=== PATIENT | male | born 1955 | race African-American/Black ===

== ENCOUNTER 2021-09-10 18:19 | Inpatient (IN) | payer OTHER ==
[2021-09-10 18:55] VITALS: BMI 22.5
[2021-09-10] MEDS ORDERED: BISMUTH SUBSALICYLATE 524 MG/30 ML PO PRN (19:20)
[2021-09-10] MEDS ORDERED: MAGNESIUM CITRATE 300 ML BOTTLE PO PRN (19:20)
[2021-09-10] MEDS ORDERED: ONDANSETRON *ODT* 4 MG TABLET SL PRN (19:20)
[2021-09-10] MEDS ORDERED: NICOTINE POLACRILEX 2 MG GUM BUC PRN (19:20)
[2021-09-10] MEDS ORDERED: ACETAMINOPHEN 325 MG TABLET (FP) PO PRN (19:20)
[2021-09-10] MEDS ORDERED: DICYCLOMINE HCL 10 MG CAPSULE PO PRN (19:20)
[2021-09-10] MEDS ORDERED: LOPERAMIDE HCL 2 MG CAPSULE PO PRN (19:20)
[2021-09-10] MEDS ORDERED: MAG HYDROX/AL HYDROX/SIMETH 30 ML UNIT-DOSE CUP PO PRN (19:20)
[2021-09-10] MEDS ORDERED: BENZOCAINE/MENTHOL (CHLORASEPTIC ) LOZENGE MM PRN (19:20)
[2021-09-10] MEDS ORDERED: MAGNESIUM HYDROX 2400MG/30ML ORAL SUSPENSION 30 ML CUP PO PRN (19:20)
[2021-09-10] MEDS ORDERED: chlordiazePOXIDE HCL 25 MG CAPSULE PO PRN (19:22)
[2021-09-10] MEDS ORDERED: chlordiazePOXIDE HCL 25 MG CAPSULE ONE (19:53)
[2021-09-11] MEDS ORDERED: chlordiazePOXIDE HCL 25 MG CAPSULE ONE ×3 (00:35→09:23)
[2021-09-11] MEDS: chlordiazePOXIDE HCL 25 MG CAPSULE PO SCH ×5 (00:39→22:38)
[2021-09-11] MEDS: THIAMINE HCL 100 MG TABLET (FP) PO SCH ×2 (00:39→22:38)
[2021-09-11] MEDS: MELATONIN 5 MG TABLETS PO PRN ×2 (00:45→22:38)
[2021-09-11] MEDS ORDERED: hydrOXYzine PAMOATE 25 MG CAPSULE (FP) PO ONE (05:38)
[2021-09-11] MEDS ORDERED: METHOCARBAMOL 500 MG TABLET ONE (05:38)
[2021-09-11] MEDS: METHOCARBAMOL 500 MG TABLET PO PRN ×2 (05:41→18:12)
[2021-09-11] MEDS: hydrOXYzine PAMOATE 25 MG CAPSULE (FP) PO PRN (05:41)
[2021-09-11] MEDS ORDERED: cloNIDine HCL 0.1 MG TABLET PO ONE (09:50)
[2021-09-11] MEDS ORDERED: cloNIDine HCL 0.1 MG TABLET ONE (10:04)
[2021-09-11 10:44] LABS: HEMATOCRIT 38.9 % (35.4-49); HEMOGLOBIN 12.9 GM/dL (11.7-16.9); MCH 35.8 pg (25.7-33.7); MCHC 33.3 g/dl (32.0-35.9); MEAN CELL VOLUME 107.6 fl (80-96); MEAN PLT VOLUME 10.2 fl (7.5-11.1); RBC 3.61 M/mm3 (4.00-5.60); RDW 18.1 % (11.9-15.9); WHITE BLOOD COUNT 4.2 K/mm3 (4.0-10.0)
[2021-09-11 10:45] LABS: PLATELET COUNT 90 10^3/uL (134-434)
[2021-09-11 10:56] LABS: CHLORIDE 104 mmol/L (98-107); SODIUM 137 mmol/L (136-145)
[2021-09-11 11:04] LABS: ALBUMIN 3.6 g/dl (3.4-5.0); ANION GAP 7 MMOL/L (8-16); BLOOD UREA NITROGEN 13.4 mg/dL (7-18); CO2 27 mmol/L (21-32); GLUCOSE,RANDOM 76 mg/dL (74-106)
[2021-09-11 11:07] LABS: CREATININE 0.9 mg/dL (0.55-1.3); SGOT/AST 473 U/L (15-37); SGPT/ALT 234 U/L (13-61)
[2021-09-11 11:08] LABS: BILIRUBIN,TOTAL 1.4 mg/dL (0.2-1); TOT PROT 6.8 g/dl (6.4-8.2)
[2021-09-11 11:10] LABS: ALK PHOS 105 U/L (45-117)
[2021-09-11] MEDS: PRENATAL VITAMINS W/ FOLIC ACID TABLET (FP) PO SCH (12:04)
[2021-09-11] MEDS: IBUPROFEN 400 MG TABLET (FP) PO PRN (18:12)
[2021-09-12] MEDS ORDERED: chlordiazePOXIDE HCL 25 MG CAPSULE PO SCH (05:00)
[2021-09-12] MEDS: IBUPROFEN 400 MG TABLET (FP) PO PRN ×2 (05:35→17:38)
[2021-09-12] MEDS ORDERED: diazePAM 5 MG TABLET PO PRN (09:01)
[2021-09-12] MEDS: diazePAM 5 MG TABLET PO SCH ×3 (10:15→22:20)
[2021-09-12] MEDS: METHOCARBAMOL 500 MG TABLET PO PRN ×2 (10:16→17:38)
[2021-09-12] MEDS: PRENATAL VITAMINS W/ FOLIC ACID TABLET (FP) PO SCH (10:17)
[2021-09-12] MEDS: MELATONIN 5 MG TABLETS PO PRN (22:17)
[2021-09-12] MEDS: ACETAMINOPHEN 325 MG TABLET (FP) PO PRN (22:18)
[2021-09-12] MEDS: THIAMINE HCL 100 MG TABLET (FP) PO SCH (22:20)
[2021-09-13] MEDS ORDERED: chlordiazePOXIDE HCL 10 MG CAPSULE PO PRN
[2021-09-13] MEDS ORDERED: chlordiazePOXIDE HCL 10 MG CAPSULE PO SCH (05:00)
[2021-09-13] MEDS: diazePAM 5 MG TABLET PO SCH ×4 (05:26→22:16)
[2021-09-13 10:14] LABS: SARS-CoV-2 NAA Not Detected (Not Detected)
[2021-09-13] MEDS: PRENATAL VITAMINS W/ FOLIC ACID TABLET (FP) PO SCH (10:24)
[2021-09-13] MEDS: IBUPROFEN 400 MG TABLET (FP) PO PRN (10:28)
[2021-09-13 13:46] LABS: HEMATOCRIT 36.9 % (35.4-49); MCH 35.7 pg (25.7-33.7); MCHC 32.7 g/dl (32.0-35.9); MEAN CELL VOLUME 109.2 fl (80-96); MEAN PLT VOLUME 10.6 fl (7.5-11.1); PLATELET COUNT 85 10^3/uL (134-434); RBC 3.38 M/mm3 (4.00-5.60); RDW 17.4 % (11.9-15.9); WHITE BLOOD COUNT 3.4 K/mm3 (4.0-10.0)
[2021-09-13 14:11] LABS: BILIRUBIN,TOTAL 0.4 mg/dL (0.2-1)
[2021-09-13] MEDS: LORATADINE 10 MG TABLET PO SCH (15:24)
[2021-09-13] MEDS: ACETAMINOPHEN 325 MG TABLET (FP) PO PRN (18:27)
[2021-09-13] MEDS: THIAMINE HCL 100 MG TABLET (FP) PO SCH (22:16)
[2021-09-13] MEDS: MELATONIN 5 MG TABLETS PO PRN (22:18)
[2021-09-14] MEDS ORDERED: chlordiazePOXIDE HCL 10 MG CAPSULE PO SCH (05:00)
[2021-09-14] MEDS: diazePAM 5 MG TABLET PO SCH ×3 (07:54→22:24)
[2021-09-14] MEDS: LORATADINE 10 MG TABLET PO SCH (10:07)
[2021-09-14] MEDS: PRENATAL VITAMINS W/ FOLIC ACID TABLET (FP) PO SCH (10:07)
[2021-09-14] MEDS: hydrOXYzine PAMOATE 25 MG CAPSULE (FP) PO PRN ×2 (10:07→22:24)
[2021-09-14] MEDS: THIAMINE HCL 100 MG TABLET (FP) PO SCH (22:24)
[2021-09-14] MEDS: MELATONIN 5 MG TABLETS PO PRN (22:25)
[2021-09-15] MEDS ORDERED: chlordiazePOXIDE HCL 10 MG CAPSULE PO ONE (05:00)
[2021-09-15] MEDS: diazePAM 5 MG TABLET PO SCH ×2 (05:34→18:00)
[2021-09-15] MEDS: LORATADINE 10 MG TABLET PO SCH (10:13)
[2021-09-15] MEDS: PRENATAL VITAMINS W/ FOLIC ACID TABLET (FP) PO SCH (10:13)
[2021-09-15 11:51] LABS: ALBUMIN 3.6 g/dl (3.4-5.0)
[2021-09-15 11:54] LABS: BILIRUBIN,DIRECT 0.1 mg/dL (0.0-0.2)
[2021-09-15 11:56] LABS: BILIRUBIN,TOTAL 0.3 mg/dL (0.2-1)
[2021-09-15] MEDS: ACETAMINOPHEN 325 MG TABLET (FP) PO PRN ×2 (18:03→22:31)
[2021-09-15] MEDS: THIAMINE HCL 100 MG TABLET (FP) PO SCH (22:30)
[2021-09-15] MEDS: MELATONIN 5 MG TABLETS PO PRN (22:31)
[2021-09-16] MEDS ORDERED: diazePAM 5 MG TABLET PO ONE (06:00)
[2021-09-16 09:10] VITALS: BP 129/79; PULSE 85; TEMP 96.8
== END 2021-09-16 12:50 | disposition home or self-care (01) | DRG 897 ==
LOC: YASAS 18:19 → Y3N 09-11 08:45
PROVIDERS: ADMIT Allergy & Immunology; ATTEND Surgery
PROC: HZ2ZZZZ Detoxification Services for Substance Abuse Treatment (ICD-10-PCS; principal; 2021-09-11)
DX: F10.230 Alcohol dependence with withdrawal, uncomplicated (principal); F12.20 Cannabis dependence, uncomplicated; F17.210 Nicotine dependence, cigarettes, uncomplicated; D69.6 Thrombocytopenia, unspecified; D72.819 Decreased white blood cell count, unspecified; R74.8 Abnormal levels of other serum enzymes; R76.11 Nonspecific reaction to tuberculin skin test without active tuberculosis; R91.8 Other nonspecific abnormal finding of lung field
CPT/HCPCS: 36415; 71045-TC-FY; 80053; 80076; 82247; 84450; 84460; 84702; 85027; 86780; C9803-CS; U0003; U0005